=== PATIENT | female | born 1970 | race Two or more races ===

== ENCOUNTER 2025-03-10 06:03 | Day surgery (SDC) | payer OTHER ==
[2025-03-07 16:38] VITALS: BMI 25.9
[2025-03-10 08:19] VITALS: TEMP 97.7
[2025-03-10 08:55] VITALS: BP 112/72; PULSE 62; RESP 18
== END 2025-03-10 09:17 | disposition home or self-care (01) ==
LOC: JASU-ENDO 06:03
PROVIDERS: ATTEND Internal Medicine Gastroenterology
PROC: 0DBM8ZX Excision of Descending Colon, Via Natural or Artificial Opening Endoscopic, Diagnostic (ICD-10-PCS; principal; 2025-03-10 07:30)
DX: Z12.11 Encounter for screening for malignant neoplasm of colon (principal); D12.4 Benign neoplasm of descending colon
CPT/HCPCS: 88305-TC